=== PATIENT | male | born 1970 | race African-American/Black ===

== ENCOUNTER 2019-06-14 17:13 | Emergency (ER) | payer SELFPAY ==
[~2019-06-14] VITALS: Ht 185.4 cm; Wt 75.0 kg
[2019-06-14 17:39] VITALS: Ht 185.4 cm; Wt 75.0 kg
[2019-06-14 17:58] LABS: BASOPHILS 0.5 % (0-2); EOSINOPHILS 1.7 % (0-7); HEMATOCRIT 43.6 % (42.0-54.0); HEMOGLOBIN 15.1 g/dL (13.5-17.5); IMMATURE GRANULOCYTES 0.3 % (0-5); LYMPHOCYTES 18.6 % (15-50); MCH 33.3 pg (26.0-34.0); MCHC 34.6 g/dL (31.0-37.0); MCV 96.2 fL (80.0-100.0); MEAN PLATELET VOLUME 9.3 fL (7.4-10.4); MONOCYTES 13.1 % (2-11); NEUTROPHILS 65.8 % (40-80); PLATELET COUNT 216 10x3/uL (130-400); RBC 4.53 10x6/uL (4.20-6.10); RDW 12.4 % (11.5-14.5); WBC 9.4 10x3/uL (4.8-10.8)
[2019-06-14 18:07] LABS: APTT 28.9 SECONDS (22.8-39.4); CALC OSMOLALITY 273 mosm/kg (275-300); CALCIUM 8.8 mg/dL (8.5-10.1); CARBON DIOXIDE 26.8 mmol/L (21.0-32.0); CHLORIDE - SERUM 104 mmol/L (98-107); CREATININE - SERUM 1.3 mg/dL (0.6-1.3); GLUCOSE 105 mg/dL (74-106); INR 1.02 (0.85-1.17); PROTIME 12.9 SECONDS (11.6-15.0); SODIUM 137 mmol/L (136-145); UREA NITROGEN 13 mg/dL (7-18); eGFR NON AFRICAN AMERICAN 63 mL/min (90-120)
[2019-06-14 18:40] LABS: ALBUMIN 3.5 g/dL (3.4-5.0); ALKALINE PHOSPHATASE 95 U/L (46-116); ALT (SGPT) 16 U/L (10-68); BILIRUBIN - TOTAL 0.61 mg/dL (0.2-1.3); CKMB 0.6 U/L (0.0-3.6); CREATINE KINASE 88 UL (21-232); MAGNESIUM - SERUM 1.8 mg/dL (1.8-2.4); PROTEIN - SERUM 7.4 g/dL (6.4-8.2); TROPONIN-I < 0.017 ng/mL (0.000-0.060)
[2019-06-14] MEDS ORDERED: CYCLOBENZAPRINE10 MG PO (20:48)
[2019-06-14] MEDS ORDERED: EC-NAPROSYN500 MG PO (20:48)
[2019-06-14 21:44] VITALS: BP 120/87
== END 2019-06-14 21:46 | disposition home or self-care (01) ==
LOC: D.ER 17:13
PROVIDERS: Family Medicine
DX: R07.89 Other chest pain (principal); R09.1 Pleurisy; Z86.73 Personal history of transient ischemic attack (TIA), and cerebral infarction without residual deficits